=== PATIENT | female | born 1980 | race Caucasian/White ===

== ENCOUNTER 2020-05-07 19:07 | Emergency (ER) | payer BC, MEDICAID ==
[2020-05-07] MEDS ORDERED: BABY ASPIRIN 81 MG CHEW ONE (19:48)
[2020-05-07] MEDS ORDERED: XYLOCAINE HCl Viscous ONE (19:49)
[2020-05-07] MEDS ORDERED: MAALOX ES 30 ML UNIT DOSE ONE (19:50)
[2020-05-07] MEDS: GI COCKTAIL 45 ML (Maalox/Lidocaine) PO ONE (19:50)
[2020-05-07] MEDS: BABY ASPIRIN 81 MG CHEW PO ONE (19:51)
[2020-05-07 19:54] LABS: Absolute Neutrophil Ct (ANC) 7.03 (1.4-6.9); BASOPHIL % 0.4 % (0.0-0.4); Basophil (Absolute #) 0.05 (0-0.4); Eosinophil % 2.1 % (0.00-5.0); Eosinophil (Absolute #) 0.24 (0-0.5); Hematocrit 43.4 % (35-47); Hemoglobin 14.3 gm/dl (12.0-16.0); Lymphocyte (Absolute #) 3.59 (1.0-4.6); Mean Cell Volume 89.7 fl (78-100); Mean Corpuscular Hemoglobin 29.5 pg (26-32); Mean Corpuscular Hgb Concent. 32.9 g/dl (32-36); Mean Platelet Volume 11.7 fl (7.5-11.0); Monocyte (Absolute #) 0.68 (0.0-1.3); Monocytes % 5.9 % (0.0-12.0); Neutrophil % 60.6 % (36.0-66.0); Platelet Count 269 K/mm3 (150-450); Red Blood Count 4.84 M/mm3 (4.1-5.4); Red Cell Distribution Width 12.2 % (11.5-14.0); White Blood Count 11.6 K/mm3 (4.0-10.5)
[2020-05-07 20:08] LABS: ALBUMIN 4.5 g/dL (3.5-5.0); ALKALINE PHOSPHATASE 137 U/L (38-126); ANION GAP 12.4 MEQ/L (5-15); BLOOD UREA NITROGEN 15 mg/dL (7-17); CHLORIDE 106 mmol/L (98-107); Calcium 9.6 mg/dL (8.4-10.2); Carbon Dioxide 23 mmol/L (22-30); Creatinine 1 0.72 mg/dL (0.52-1.04); EST GLOMERULAR FILTRATION RATE > 60.0 ML/MIN; Glucose 126 mg/dL (74-106); NT PRO BNP 32.3 pg/mL (0-450); Potassium 3.8 mmol/L (3.5-5.1); SGOT/AST 45 U/L (14-36); SGPT/ALT 59 U/L (0-35); SODIUM 137 mmol/L (137-145); Total Protein 8.2 g/dL (6.3-8.2)
--- NOTE | 2020-05-07 20:24 | ERPHSYRPT ---
- History of Present Illness Time Seen by Provider: 05/07/20 19:21 Historian: patient Exam Limitations: no limitations Patient Subjective Stated Complaint: pt here for pain to epigastric area today, with vomiting. Triage Nursing Assessment: pt alert, walked in, face mask in place, resp easy . skin w/d/p. no edema noted Physician History: 40 years old female presented in the ER with chief complaint of epigastric pain sudden onset around 9 AM today with burning/sharp in nature, mild to moderate intensity, intermittent without any significant aggravating or relieving factors, associated with nausea and dry heaving without any abdominal pain. Patient denies any palpitations or shortness of breath. No cough fever or chills reported. Denies any known COVID-19's positive sick contact. Denies any history of CAD in the past. Patient noted earlier her blood pressure at home was 180s without any history of hypertension. Currently her blood pressure is in 160s and her pain is minimal to none. Timing/Duration: today, sudden, improved Activities at Onset: rest Quality: burning, sharpness Location: substernal, epigastric Chest Pain Radiation: no radiation Severity of Pain-Max: moderate Severity of Pain-Current: mild Modifying Factors: Improves With: nothing Associated Symptoms: nausea, heartburn, No palpitations, No shortness of breath, No cough, No chills, No fever Prior Chest Pain/Cardiac Workup: no prior chest pain Nitro Today/Relief: no nitro taken today Aspirin Treatment Today: no aspirin today Allergies/Adverse Reactions: No Known Drug Allergies Allergy (Verified 05/07/20 19:38) Hx Influenza Vaccination/Date Given: Yes Hx Pneumococcal Vaccination/Date Given: No Immunizations Up to Date: Yes Travel Risk - International Travel Have you traveled outside of the country in past 3 weeks: No - Coronavirus Screening Close contact with a COVID-19 positive Pt in past 14-21 Days: No - Review of Systems Constitutional: No Symptoms Eyes: No Symptoms Ears, Nose, & Throat: No Symptoms Respiratory: No Symptoms Cardiac: Chest Pain Abdominal/Gastrointestinal: Nausea Genitourinary Symptoms: No Symptoms Musculoskeletal: No Symptoms Skin: No Symptoms Neurological: No Symptoms Psychological: No Symptoms Endocrine: No Symptoms Hematologic/Lymphatic: No Symptoms Immunological/Allergic: No Symptoms - Past Medical History Pertinent Past Medical History: No - Past Surgical History Past Surgical History: Yes Female Surgical History: Tubal Ligation - Social History Smoking Status: Never smoker Exposure to second hand smoke: No Drug Use: none Patient Lives Alone: No - Female History Hx Last Menstrual Period: apr Hx Now: No - Nursing Vital Signs Nursing Vital Signs: Initial Vital Signs Temperature 98.1 F 05/07/20 19:33 Pulse Rate 96 H 05/07/20 19:33 Respiratory Rate 16 05/07/20 19:33 Blood Pressure 168/112 05/07/20 19:33 O2 Sat by Pulse Oximetry 99 05/07/20 19:33 Pain Scale Pain Intensity 0 - Physical Exam General Appearance: no apparent distress, alert Eye Exam: PERRL/EOMI, eyes nml inspection Ears, Nose, Throat Exam: normal ENT inspection, pharynx normal Neck Exam: normal inspection, non-tender, supple, full range of motion Respiratory Exam: normal breath sounds, lungs clear Cardiovascular Exam: regular rate/rhythm, normal heart sounds Gastrointestinal/Abdomen Exam: soft, normal bowel sounds, No tenderness Back Exam: normal inspection, normal range of motion Extremity Exam: normal inspection, normal range of motion Neurologic Exam: alert, oriented x 3, cooperative, weigher operator II-XII nml as tested Skin Exam: normal color, warm, dry SpO2 Interpretation: normal SpO2: 98 O2 Delivery: Room Air - Course EKG Interpreted by Me: RATE ([id number]), Sinus Rhythm, NORMAL AXIS, NORMAL INTERVALS, NORMAL QRS Ordered Tests: Active Orders 24 hr Category Date Time Status Front Desk Attendant STAT Care 05/07/20 19:44 Completed EKG-ER Only STAT Care 05/07/20 19:44 Completed IV Insertion STAT Care 05/07/20 19:44 Completed CHEST 1 VIEW (PORTABLE) Stat Exams 05/07/20 19:44 Taken CHEST WITH CONTRAST [CT] Stat Exams 05/07/20 20:38 Taken CBC W DIFF Stat Lab 05/07/20 19:48 Completed CMP Stat Lab 05/07/20 19:48 Completed D-DIMER QUANTITATIVE Stat Lab 05/07/20 19:48 Completed HCG,QUALITATIVE URINE Stat Lab 05/07/20 20:21 Completed LIPASE Stat Lab 05/07/20 20:00 Completed NT PRO BNP Stat Lab 05/07/20 19:48 Completed TROPONIN Q3H Lab 05/07/20 19:48 Completed TROPONIN Q3H Lab 05/07/20 22:16 Completed Medication Summary Discontinued Medications Generic Name Dose Route Start Last Admin Trade Name Flacoq PRN Reason Stop Dose Admin Al Hydrox/Mg Hydrox/Simethicone Confirm 05/07/20 19:50 Maalox Es 30 Ml Unit Dose Administered 05/07/20 19:51 Dose 30 ml .ROUTE .STK-MED ONE Aspirin 324 mg 05/07/20 19:44 05/07/20 19:51 Baby Aspirin 81 Mg Chew PO 05/07/20 19:45 324 mg STAT ONE Administration Aspirin Confirm 05/07/20 19:48 Baby Aspirin 81 Mg Chew Administered 05/07/20 19:49 Dose 324 mg .ROUTE .STK-MED ONE Lisinopril 10 mg/ 0 mg 05/08/20 10:00 05/07/20 22:58 Hydrochlorothiazide 12.5 mg PO 06/07/20 09:59 12.5 mg DAILY MELA Administration Hydrochlorothiazide Confirm 05/07/20 22:54 Hydrodiuril 25 Mg Administered 05/07/20 22:55 Dose 25 mg .ROUTE .STK-MED ONE Lidocaine HCl Confirm 05/07/20 19:49 Xylocaine Hcl Viscous * Administered 05/07/20 19:50 Dose 15 ml .ROUTE .STK-MED ONE Lisinopril Confirm 05/07/20 22:54 Zestril 10 Mg Administered 05/07/20 22:55 Dose 10 mg .ROUTE .STK-MED ONE Magnesium Hydroxide 45 ml 05/07/20 19:45 05/07/20 19:50 Gi Cocktail 45 Ml (Maalox/Lidocaine) PO 05/07/20 19:46 45 ml STAT ONE Administration Lab/Rad Data: Laboratory Result Diagrams 05/07/20 19:48 05/07/20 19:48 Laboratory Results 05/07/20 05/07/20 05/07/20 Range/Units 22:16 20:21 20:00 WBC (4.0-10.5) K/mm3 RBC (4.1-5.4) M/mm3 Hgb (12.0-16.0) gm/dl Hct (35-47) % MCV (78-100) fl MCH (26-32) pg MCHC (32-36) g/dl RDW (11.5-14.0) % Plt Count (150-450) K/mm3 MPV (7.5-11.0) fl Gran % (36.0-66.0) % Eos # (Auto) (0-0.5) Absolute Lymphs (auto) (1.0-4.6) Absolute Monos (auto) (0.0-1.3) Lymphocytes % (24.0-44.0) % Monocytes % (0.0-12.0) % Eosinophils % (0.00-5.0) % Basophils % (0.0-0.4) % Absolute Granulocytes (1.4-6.9) Basophils # (0-0.4) D-Dimer (215-500) ng/mL Sodium (137-145) mmol/L Potassium (3.5-5.1) mmol/L Chloride (98-107) mmol/L Carbon Dioxide (22-30) mmol/L Anion Gap (5-15) MEQ/L BUN (7-17) mg/dL Creatinine (0.52-1.04) mg/dL Estimated GFR ML/MIN Glucose (74-106) mg/dL Calcium (8.4-10.2) mg/dL Total Bilirubin (0.2-1.3) mg/dL AST (14-36) U/L ALT (0-35) U/L Alkaline Phosphatase (38-126) U/L Troponin I < 0.012 (0.000-0.034) ng/mL NT-Pro-B Natriuret Pep (0-450) pg/mL Serum Total Protein (6.3-8.2) g/dL Albumin (3.5-5.0) g/dL Lipase 108 (23-300) U/L Urine HCG, Qual NEGATIVE (Negative) 05/07/20 05/07/20 05/07/20 Range/Units 19:48 19:48 19:48 WBC (4.0-10.5) K/mm3 RBC (4.1-5.4) M/mm3 Hgb (12.0-16.0) gm/dl Hct (35-47) % MCV (78-100) fl MCH (26-32) pg MCHC (32-36) g/dl RDW (11.5-14.0) % Plt Count (150-450) K/mm3 MPV (7.5-11.0) fl Gran % (36.0-66.0) % Eos # (Auto) (0-0.5) Absolute Lymphs (auto) (1.0-4.6) Absolute Monos (auto) (0.0-1.3) Lymphocytes % (24.0-44.0) % Monocytes % (0.0-12.0) % Eosinophils % (0.00-5.0) % Basophils % (0.0-0.4) % Absolute Granulocytes (1.4-6.9) Basophils # (0-0.4) D-Dimer 1038 H* (215-500) ng/mL Sodium 137 (137-145) mmol/L Potassium 3.8 (3.5-5.1) mmol/L Chloride 106 (98-107) mmol/L Carbon Dioxide 23 (22-30) mmol/L Anion Gap 12.4 (5-15) MEQ/L BUN 15 (7-17) mg/dL Creatinine 0.72 (0.52-1.04) mg/dL Estimated GFR > 60.0 ML/MIN Glucose 126 H (74-106) mg/dL Calcium 9.6 (8.4-10.2) mg/dL Total Bilirubin 0.60 (0.2-1.3) mg/dL AST 45 H (14-36) U/L ALT 59 H (0-35) U/L Alkaline Phosphatase 137 H (38-126) U/L Troponin I < 0.012 (0.000-0.034) ng/mL NT-Pro-B Natriuret Pep 32.3 (0-450) pg/mL Serum Total Protein 8.2 (6.3-8.2) g/dL Albumin 4.5 (3.5-5.0) g/dL Lipase (23-300) U/L Urine HCG, Qual (Negative) 05/07/20 Range/Units 19:48 WBC 11.6 H (4.0-10.5) K/mm3 RBC 4.84 (4.1-5.4) M/mm3 Hgb 14.3 (12.0-16.0) gm/dl Hct 43.4 (35-47) % MCV 89.7 (78-100) fl MCH 29.5 (26-32) pg MCHC 32.9 (32-36) g/dl RDW 12.2 (11.5-14.0) % Plt Count 269 (150-450) K/mm3 MPV 11.7 H (7.5-11.0) fl Gran % 60.6 (36.0-66.0) % Eos # (Auto) 0.24 (0-0.5) Absolute Lymphs (auto) 3.59 (1.0-4.6) Absolute Monos (auto) 0.68 (0.0-1.3) Lymphocytes % 31.0 (24.0-44.0) % Monocytes % 5.9 (0.0-12.0) % Eosinophils % 2.1 (0.00-5.0) % Basophils % 0.4 (0.0-0.4) % Absolute Granulocytes 7.03 H (1.4-6.9) Basophils # 0.05 (0-0.4) D-Dimer (215-500) ng/mL Sodium (137-145) mmol/L Potassium (3.5-5.1) mmol/L Chloride (98-107) mmol/L Carbon Dioxide (22-30) mmol/L Anion Gap (5-15) MEQ/L BUN (7-17) mg/dL Creatinine (0.52-1.04) mg/dL Estimated GFR ML/MIN Glucose (74-106) mg/dL Calcium (8.4-10.2) mg/dL Total Bilirubin (0.2-1.3) mg/dL AST (14-36) U/L ALT (0-35) U/L Alkaline Phosphatase (38-126) U/L Troponin I (0.000-0.034) ng/mL NT-Pro-B Natriuret Pep (0-450) pg/mL Serum Total Protein (6.3-8.2) g/dL Albumin (3.5-5.0) g/dL Lipase (23-300) U/L Urine HCG, Qual (Negative) - Progress Progress Note: 05/07/20 22:52 old is evaluated for chest pain. EKG showed normal sinus rhythm with no acute ST or T wave changes suggesting ischemia. Has negative troponins x2. Had elevated D-dimers but CTA is negative for any obvious pulmonary embolism. I have given her aspirin and GI cocktail, on reevaluation she is feeling better. I believe her symptoms are probably secondary to GERD esophagitis and would start her on Protonix. Patient blood pressure remained el evated in the upper 170s throughout stay in the ER, she is not complaining of any headache, blurry vision, abdominal pain etc. I believe patient's blood pressure is elevated for quite some time and have not checked it, I have given her a dose of lisinopril HCTZ in here and will continue with Cozaar to go home. Discussed with patient about monitoring of blood pressure, keeping a log and outpatient follow-up. Discussed with patient about signs symptoms to watch for high and low blood pressure and instructions about how to manage it. Discussed outpatient follow-up with primary care and cardiology for reevaluation. At this point I do not think patient needs any further work-up in the ER or needs to be admitted and is stable for discharge. Blood Culture(s) Obtained: No Antibiotics given: No Counseled pt/family regarding: lab results, diagnosis, need for follow-up, rad results - Departure Departure Disposition: Home Clinical Impression: Atypical chest pain GERD with esophagitis Qualifiers: Esophagitis bleeding: without hemorrhage Qualified Code(s): K21.00 - Gastro-e sophageal reflux disease with esophagitis, without bleeding Hypertension Qualifiers: Hypertension type: unspecified Qualified Code(s): I10 - Essential (primary) hypertension Condition: Stable Critical Care Time: No Referrals: CARIDAD WHITTEN [Primary Care Provider] - Follow Up with PCP/3 days JIMBO HILLMAN [ACTIVE STAFF] - Instructions: High Blood Pressure in Adults, Chest Pain (DC) Additional Instructions: Follow-up with primary care and cardiology for reevaluation. Your blood pressu re regularly, keep a log and follow-up with PCP. Return to ER for worsening chest pain or if have palpitations/shortness of breath. Prescriptions: Losartan Potassium [Cozaar] 25 mg PO DAILY #30 tablet PANTOPRAZOLE 40 mg Tablet [Protonix 40MG Tablet] 40 mg PO QPM 30 Days #30 tab
[2020-05-07] MEDS ORDERED: hydroDIURIL 25 MG ONE (22:54)
[2020-05-07] MEDS ORDERED: Zestril 10 MG ONE (22:54)
[2020-05-07] MEDS: Zestril 10 MG*** 10 MG, hydroDIURIL 25 MG*** 12.5 MG PO SCH ×2 (22:58)
[2020-05-07 23:19] VITALS: BP 153/98; PULSE 89
[2020-05-07 23:35] VITALS: O2SAT 98
--- NOTE | 2020-05-08 08:58 | XRAY ---
Indication: Chest pain. Elevated d-dimer. Multiple contiguous axial images obtained through the chest using 80 cc Isovue 370 contrast and PE protocol. Comparison: None There is poor opacification of the pulmonary arteries limiting evaluation for pulmonary embolus. No obvious large central pulmonary embolus. Heart is not enlarged. Aorta is normal in course and caliber. No pathologic mediastinal/hilar lymphadenopathy. Lungs are inflated with minimal bilateral dependent atelectasis and tiny bilateral lower lobe calcified granulomas. No infiltrate, consolidation, or effusion. Incidental right hemidiaphragm elevation. Bony thorax intact with minimal degenerative changes throughout the spine. Limited upper abdomen demonstrates diffuse fatty liver, hepatic/splenic calcified granulomas, and incompletely visualized 1.3 cm left renal cyst. Gallbladder is moderately distended without biliary distention. Impression: 1. Pulmonary embolus evaluation limited due to poor opacification. No obvious large central pulmonary embolus. 2. Distended gallbladder better evaluated with ultrasound if clinically warranted. 3. Incidental right hemidiaphragm elevation, fatty liver, left renal cyst, and old granulomatous disease. Comment: Preliminary interpretation was made by [facility]. No critical discrepancy.
--- NOTE | 2020-05-08 08:58 | XRAY ---
Indication: Chest pain. Comparison: None Portable chest demonstrates right hemidiaphragm elevation. Remaining heart, lungs, and bony thorax normal.
== END 2020-05-07 23:19 | disposition home or self-care (01) ==
LOC: ED 19:07
DX: R07.89 Other chest pain (principal); K21.00 Gastro-esophageal reflux disease with esophagitis, without bleeding; I10 Essential (primary) hypertension
CPT/HCPCS: 36000; 36415; 71045; 71260; 80053; 83690; 83880; 84484; 84703; 85025; 85379; 93005; 93041; 99284; A9270-GY